=== PATIENT | male | born 1990 | race Two or more races ===

== ENCOUNTER 2024-08-08 12:54 | Emergency (ER) | payer MEDICAID, OTHER ==
[~2024-08-08] VITALS: Ht 182.9 cm; Wt 85.0 kg
--- NOTE | 2024-08-08 13:13 | ED.PDOC ---
History of Present Illness HPI Comments 34 year old male presents to the ED via EMS with a chief complaint of seizure onset today (08/08/24). Per EMS, patient was found by mother with seizure like activity, patient takes 3 g Keppra daily, states he is complaint with medication. Upon EMS arrival, patient's pupils were pinpoint, Narcan was given, patient was responsive shortly after. He denies any drug use. PMHx seizures. Denies chest pain, headache, dizziness, nausea, vomiting, diarrhea. No other symptoms or modifying factors present a this time. Chief Complaint: Seizure Time Seen by MD: 13:00 Reviewed Notes: Medications, Allergies Allergies: Coded Allergies: NO KNOWN ALLERGIES (Unverified , 08/08/24) Information Source: Patient, Emergency Med Personnel Mode of Arrival: EMS Severity: Moderate Timing: Hours Duration: Since onset Prehospital treatment: None Past Medical History PAST MEDICAL HISTORY: Seizures Surgical History: Denies all surgeries Family History Family History: Reviewed,noncontributory to illness, No family hx of Cancer, No family hx of DM, No family hx of Heart ritchie, No family hx of HTN, No family hx ofKidney ritchie, No family hx of Liver ritchie, No family hx of Lung ritchie, No family hx of Stroke Social History Smoker: Non-Smoker Alcohol: Denies ETOH Use Drugs: Denies Drug Use Lives In: Home Constitutional: denies: chills, diaphoresis, fatigue, fever, malaise, sweats, weakness, others EENTM: denies: blurred vision, double vision, ear bleeding, ear discharge, ear drainage, ear pain, ear ringing, eye pain, eye redness, hearing loss, mouth pain, mouth swelling, nasal discharge, nose bleeding, nose congestion, nose pain, photophobia, tearing, throat pain, throat swelling, voice changes, others Respiratory: denies: cough, hemoptysis, orthopnea, SOB at rest, shortness of breath, SOB with excertion, stridor, wheezing, others Cardiovascular: denies: chest pain, dizzy spells, diaphoresis, Dyspnea on exertion, edema, irregular heart beat, left arm pain, lightheadedness, palpitations, PND, syncope, others Gastrointestinal: denies: abdomen distended, abdominal pain, blood streaked bowels, constipated, diarrhea, dysphagia, difficulty swallowing, hematemesis, melena, nausea, poor appetite, poor fluid intake, rectal bleeding, rectal pain, vomiting, others Genitourinary: denies: burning, dysuria, flank pain, frequency, hematuria, incontinence, penile discharge, penile sore, pain, testicle pain, testicle swelling, urgency, others Neurological: reports: seizure; denies: dizziness, fainting, headache, left sided numbness, left sided weakness, numbness, paresthesia, pre-existing deficit, right sided numbness, right sided weakness, speech problems, tingling, tremors, weakness, others Musculoskeletal: denies: back pain, gout, joint pain, joint swelling, muscle pain, muscle stiffness, neck pain, others Integumetry: denies: bruises, change in color, change in hair/nails, dryness, laceration, lesions, lumps, rash, wounds, others Hematologic/Lymphatic: denies: anemia, blood clots, easy bleeding, easy bruising, swollen glands, others Endocrine: denies: excessive hunger, excessive sweating, excessive thirst, excessive urination, flushing, intolerance to cold, intolerance to heat, unexplained weight gain, unexplained weight loss, others Psychiatric: denies: anxiety, bipolar disorder, depression, hopeless, panic disorder, schizophrenia, sleepless, suicidal, others All Other Systems: Reviewed and Negative Physical Exam General Appearance: No Apparent Distress, Normal HEENT: Normal ENT Inspection, Pharynx Normal, TMs Normal Neck: Full Range of Motion, Non-Tender, Normal, Normal Inspection Respiratory: Chest Non-Tender, Lungs Clear, No Accessory Muscle Use, No Respiratory Distress, Normal Breath Sounds Cardiovascular: No Edema, No JVD, No Murmur, No Gallop, Normal Peripheral Pulses, Regular Rate/Rhythm Breast Exam: Deferred Gastrointestinal: No Organomegaly, Non Tender, No Pulsatile Mass, Normal Bowel Sounds, Soft Genitalia: Deferred Pelvic: Deferred Rectal: Deferred Extremities: No calf tenderness, Normal capillary refill, Normal inspection, Normal range of motion, Non-tender, No pedal edema Musculoskeletal : Apperance: Normal Neurologic: Alert, telemetry registered nurse II-XII nml as Tested, No Motor Deficits, Normal Affect, Normal Mood, No Sensory Deficits Cerebellar Function: Normal Reflexes: Normal Skin: Dry, Normal Color, Warm Lymphatic: No Adenopathy Was a procedure done? Was a procedure done?: No Differential Dx Considerations may include: breakthrough seizure, hypoglycemia, hyponatremia, hypernatremia, hypotension, substance abuse, noncompliance, status epilepticus X-Ray, Labs, Meds, VS Vital Signs Date Time Temp Pulse Resp B/P (MAP) Pulse Ox O2 Delivery O2 Flow Rate FiO2 08/08/24 15:03 98.2 69 14 105/66 (79) 97 98.2 08/08/24 14:59 14 Room Air* 0 21 08/08/24 13:00 98.2 64 12 126/81 (96) 97 98.2 Lab Test 08/08/24 13:15 Range/Units Sodium Level 141 136-145 mmol/L Potassium Level 5.0 3.5-5.1 mmol/L Chloride Level 105 98-107 mmol/L Carbon Dioxide Level 32 H 20-31 mmol/L Anion Gap 4 L 5-15 Blood Urea Nitrogen 7 L 9-23 mg/dL Creatinine 0.78 0.700-1.30 mg/dL Glomerular Filtration Rate Calc 120 >90 mL/min BUN/Creatinine Ratio 9.0 L 10.0-20.0 Serum Glucose 97 74-106 mg/dL Calcium Level 10.2 8.7-10.4 mg/dL Current Medications Medications (Trade) Dose Ordered Sig/Marlo Route Start Time Stop Time Status Last Admin Levetiracetam 100 ml @ 400 mls/hr ONCE ONCE IV 08/08/24 13:15 08/08/24 14:11 DC 08/08/24 15:07 Time of 1ST Reevaluation: 13:30 Reevaluation 1ST: Unchanged Time of 2ND Reevaluation: 15:23 Reevaluation 2ND: Resolved Patient Education/Counseling: Diagnosis, Treatment, Prognosis, Need For Follow Up Family Education/Counseling: No Family Present Comments pt has been seizure free since he has been here. EMS report that he responded to narcan, which makes opioid abuse as contributory to this seizure event likely. he has not had any recurrence of altered mental state after hours of observation in the ER. He is stable for discharge Additional Information The following tests were ordered, and results were reviewed by me: DRUG SCREEN, BMP Additional Information was gathered from interviewing the following independent historians: EMS I discussed treatment and results with medical personnel and: patient Comprehensive systems review obtained and negative except for what is stated in the HPI. due to the history of narcan used in the field and the initial altered mental state, following seizures, i was concerned about recurrence of obtundent state if he took a long acting opioid. for this reason, he was very closely monitored and repeated checked by me. fortunately, he exhibited no signs of altered mentation or recurrent seizures. it is after a lengthy observation that he is deemed safe for discharge SEPSIS Sepsis Screen Physician Orders Drug Screen (08/08/24 13:04) Seizure Precautions (08/08/24 ) Accucheck (08/08/24 13:04) Vital Signs Date Time Temp Pulse Resp B/P (MAP) Pulse Ox O2 Delivery O2 Flow Rate FiO2 08/08/24 15:03 98.2 69 14 105/66 (79) 97 98.2 08/08/24 14:59 14 Room Air* 0 21 08/08/24 13:00 98.2 64 12 126/81 (96) 97 98.2 Medications Medications Dose Ordered Sig/Marlo Route Start Time Stop Time Status Last Admin Dose Admin Levetiracetam 100 ml @ 400 mls/hr ONCE ONCE IV 08/08/24 13:15 08/08/24 14:11 DC 08/08/24 15:07 Departure 1 Departure Time of Disposition: 15:23 Impression: Primary Impression: Breakthrough seizure Disposition: 01 HOME / SELF CARE / HOMELESS Condition: Good Discharged With: Self Critical Care Note Critical Care Time?: Yes (45 min-critical care time only) Critical care comment: Due to concerns for patients condition deteriorating, the care required my highest level of attention and readiness to intervene. I assessed the patient, reviewed the medical records, ordered the appropriate tests and treatments, then reassessed for results and responsiveness. I communicated with medical personnel and consultants and formulated a plan of care. Total critical care time excludes any procedures Stability Stability form required: No I personally scribed for JACOBO MORRIS MD ([email or web address]) on 08/08/24 at 13:13. Electronically submitted by Norma Novak ([email or web address]). JACOBO MORRIS MD Aug 08, 2024 13:13
[2024-08-08 13:36] LABS: Chloride 105 mmol/L (98-107); Sodium 141 mmol/L (136-145)
[2024-08-08 13:37] LABS: Anion Gap 4 (5-15)
[2024-08-08 13:38] LABS: Calcium 10.2 mg/dL (8.7-10.4)
[2024-08-08 13:42] LABS: Glucose 97 mg/dL (74-106)
[2024-08-08 14:00] LABS: Blood Urea Nitrogen 7 mg/dL (9-23); Carbon Dioxide 32 mmol/L (20-31)
[2024-08-08 14:59] VITALS: RESP 14
[2024-08-08 15:03] VITALS: BP 105/66; PULSE 69; RESP 14; TEMP 98.2; O2SAT 97
[2024-08-08] MEDS: levETIRAcetam 500 mg/100ml 100 ML IV ONE (15:07)
== END 2024-08-08 16:00 | disposition home or self-care (01) ==
LOC: EDBD 12:54 → ER 12:54
DX: R56.9 Unspecified convulsions (principal); Z79.899 Other long term (current) drug therapy
CPT/HCPCS: 36415; 80048; 96374; 99291; J1953